=== PATIENT | female | born 1950 | race Caucasian/White ===

== ENCOUNTER 2025-03-07 14:23 | Emergency (ER) | payer MEDICARE, SELFPAY ==
[2025-03-07 14:25] VITALS: BP 143/70; PULSE 88; RESP 18; TEMP 37.8; O2SAT 94
[2025-03-07 14:29] VITALS: BP 143/70; PULSE 88; RESP 18; TEMP 37.8; O2SAT 94
--- NOTE | 2025-03-07 14:45 | DI.CT_ITS ---
Exam(s) CT HEAD WO EXAM: CT HEAD WO CLINICAL HISTORY: Confusion, AMS. TECHNIQUE: Imaging Protocol: Axial computed tomography images with coronal and sagittal reformatted images were created and reviewed COMPARISON: No exams were available for comparison FINDINGS: Ventricles and Extra axial spaces: Normal in size and morphology for the patient's age. Hemorrhage: None. Cerebral parenchyma: No evidence of acute infarct or mass. Mild microvascular changes in the white matter. Midline shift: None. Brainstem/Cerebellum: Normal. Bones: No skull or facial fractures. Visualized Paranasal sinuses:Clear. Mastoids: Clear. Soft Tissues: Unremarkable. ORBITS: Unremarkable. PITUITARY: Not enlarged. IMPRESSION: No acute intracranial process. RADIATION DOSE DELIVERED: Total DLP DATA REPOSITORY: All CT scans at this facility are submitted to the National Radiology Data Registry (NRDR) Dose Index Registry (DIR) with the [employer] (A[employer]). RADIATION OPTIMIZATION: All CT scans at this facility use at least one of these dose optimization techniques: automated exposure control; mA and/or kV adjustment per patient size (includes targeted exams where dose is matched to clinical indication); or iterative reconstruction.
--- NOTE | 2025-03-07 14:49 | W.ED.GENAD ---
Discharge Plan Disposition Patient Disposition: Home Condition: Stable Discharge Details Clinical Impression: Confusion, Thrombocytopenia, Tick bite Primary Care Provider: Davin Johns ED Provider: Ingrid Doran Home Meds and New Rx's Prescriptions: New doxycycline hyclate 100 mg tablet 100 mg PO BID 10 Days Qty: 20 0RF No Action amlodipine 5 mg tablet 5 mg PO DAILY Discharge Instructions Instructions: Lyme Disease Test Additional Instructions: You were seen in the emergency department today for evaluation of some increasing confusion in our department you had a full physical examination performed, had a CT of your brain that was read as normal by our radiology team. You did have some laboratory abnormalities, your white blood cell count and your platelet count are slightly low,. And this can be seen in certain types of viral infections. Your urine studies were negative for infection though you do have a very small amount of blood. You had no evidence of damage to your heart and your thyroid is functioning within normal limits. As we discussed, given your recent tick bite a tickborne illness must be considered as this could cause some of the symptoms that you are experiencing. We have started you on a medication called doxycycline, you will take this twice a day and should take all this medication until it is gone, even if you start to feel better. Please avoid excessive sun exposure as your skin will be very sensitive while taking this medication. You will be contacted if the results of your tickborne panel are positive. Additionally, you need to follow-up with your primary care provider to discuss this visit and any ongoing workup, as we do not have a definitive diagnosis for all of the symptoms that you are experiencing today. You can always return to the emergency department especially if you have a fever that does not respond to medication, have alteration in mental status or change in responsiveness, develop headache, chest pain, or any other symptoms that cause you concern. Thank you for allowing us to be part of your care. Stand Alone Forms: Portal Information HPI General Mode of arrival: ambulatory. Date/Time Provider Initiated Documentation: 03/07/25 14:28. Limitations to Documentation: no limitations. Information obtained by: patient, family and old records reviewed. HPI Narrative: This is a 74-year-old female patient with history of hypertension who is presenting for evaluation of confusion. The patient reports that she woke up in her normal state of health, had breakfast and was going about her day. Around noon she called her daughter, stating that she felt confused and not like herself. She is not sure when this started, states that she does not believe there was a definitive onset time. She reports that she is not experiencing any associated symptoms such as headache, vision changes, numbness, weakness, chest pain, etc. She has noted that she has been excessively sweaty at night for the last several days, and was noted to have a low-grade fever in triage. She denies dysuria but did have an episode of urinary incontinence during this provider's examination which is not typical for her. The family member present at bedside says that the patient appears sleepier than typical, she does not have any new facial droop, but was not acting herself. She does have a history of recent mild memory impairment, but is otherwise fairly healthy. She does not tend to go to the doctors if she can avoid it. Related Data Home Medications ?Medication ?Instructions ?Recorded ?Confirmed amlodipine 5 mg tablet 5 mg PO DAILY 03/07/25 03/07/25 doxycycline hyclate 100 mg tablet 100 mg PO BID 10 days #20 tabs 03/07/25 Previous Rx's ?Medication ?Instructions ?Recorded doxycycline hyclate 100 mg tablet 100 mg PO BID 10 days #20 tabs 03/07/25 Allergies Allergy/AdvReac Type Severity Reaction Status Date / Time No Known Allergies Allergy Unverified 03/07/25 14:29 General Stated Complaint: AMS/LOC MATTHIAS: 3 Exam Narrative Exam Narrative: Gen: awake and alert, in no apparent distress. Appears well nourished. HEENT: PERRL, EOMs full and without nystagmus. External ears and nose normal, mucous membranes moist. Neck: Supple, full range of motion, no observable masses Lungs: No increased work of breathing, lung sounds clear and equal bilaterally without wheezes, rhonchi, or rales. CV: Heart with regular rate and rhythm, no murmurs auscultated. Strong and symmetrical radial pulses. Abdomen: Soft, nondistended, non-tender to palpation. No rigidity, rebound tenderness, or guarding. MSK: No joint swelling, no redness. Full ROM without limitation, no external traumatic findings. Skin: No rashes or lesions to visualized skin. Normal color, warm, and dry. Neuro: Cranial nerves II-XII intact and symmetrical bilaterally. 5/5 strength in all muscle groups x4 extremities. No sensory deficits. Accurate targeting with [id number], ambulates with steady gait. Psych: Appropriate for situation. Course Vital Signs Vital signs: Vital Signs Temperature 37.8 C H 03/07/25 14: Pulse 88 03/07/25 14:25 Respiratory Rate 18 03/07/25 14: Blood Pressure 143/70 H 03/07/25 14:25 Pulse Oximetry 94 03/07/25 14: Temperature 37.8 C H 03/07/25 14: Temperature Source Tympanic 03/07/25 14:29 Pulse 88 03/07/25 14:29 Respiratory Rate 18 03/07/25 14: Blood Pressure 143/70 H 03/07/25 14:29 Pulse Oximetry 94 03/07/25 14: Oxygen Delivery Method Room Air 03/07/25 14: Oxygen Flow Rate 0 03/07/25 14: Pain Level 0 03/07/25 14:29 Medical Decision Making This is a 74-year-old female patient presenting for evaluation of confusion. My differential includes but is not limited to intracranial pathology including stroke, hemorrhage, intracranial mass effect, though the patient is at this time neurologically intact with an NIH score of 0. I certainly considered infectious pathology, most likely UTI given the episode of new incontinence. Considered metabolic and electrolyte derangement, dehydration, kidney injury, hypothyroidism. Unfortunately, there are not many localizing symptoms to help guide further differentials. We will obtain labs to include CBC, CMP, magnesium, troponin, urinalysis, TSH, and will obtain a Noncon CT head. - I reviewed the patient's laboratory studies, and do note a leukopenia and thrombocytopenia without priors available for comparison. No severe anemia, chemistry panel with without significant electrolyte derangement other than a very slightly low sodium to 133 and calcium to 8.1. No evidence of kidney or liver dysfunction, troponin is negative, TSH within normal limits. The urinalysis does show microscopic hematuria without evidence of infection. The CT head was reviewed by myself and shows no evidence of acute intracranial abnormality to explain her symptoms. When I reevaluated the patient, she and her family member report that she is at her neurologic baseline, with some confusion and repetitive questioning which is normal for her. I explained the findings, especially the leukopenia and thrombocytopenia which may be credit resolution representative of viral syndrome. The patient has no respiratory symptoms to suggest viral URI, but on subsequent history taking does endorse an engorged tick bite within the last few weeks on her torso. For this reason, it is reasonable to send off a tick and Lyme panel but I will empirically treat this patient with 10 days of doxycycline twice daily. I also provided her with a dose of Tylenol for her low-grade fever. I instructed the patient to take all the antibiotics unless she was instructed to stop, the results of her lab test will not be available for several days. She will need to follow-up with her primary care provider to ensure normalization of her blood counts. At this time, the patient has had a full medical evaluation and is safe for discharge to home. They are hemodynamically stable, ambulatory, and tolerating PO. They are understanding of the follow-up plan and return precautions. They left our facility without incident. Ingrid Doran MD [facility], [facility] All Active Problems (Updated 03/07/25 @ 17:10 by Ingrid Doran MD) Tick bite (Acute) Confusion (Acute) Thrombocytopenia (Chronic) Social History Smoking/Tobacco Use Status: Never Smoking risk assessment performed?: Yes Alcohol Intake: never Drug use: Never Substance use type: does not use Housing: house Do you feel safe at home: Yes Do you feel safe in your relationship?: Yes
[2025-03-07 15:43] LABS: HCT 35.5 % (36.0-46.0); HGB 12.1 g/dL (11.2-15.7); MCH 29.3 pg (27.0-33.0); MCHC 34.1 % (32.0-36.0); MCV 86 fL (80-95); MPV 10.6 fL (8.0-11.0); RBC 4.13 10^6/uL (3.93-5.22); RDW 13.2 % (11.7-14.6); RDW-SD 41.5 fL; WBC 3.14 10^3/uL (4.4-10.8)
[2025-03-07 15:51] LABS: INR 1.1 (0.9-1.1); Prothrombin Time 11.0 sec (9.1-11.1)
[2025-03-07 16:02] LABS: Magnesium 1.8 mg/dL (1.6-2.6)
[2025-03-07 16:04] LABS: ALT 24 U/L (10-49); AST 28 U/L (<34); Albumin 3.9 g/dL (3.4-5.0); Alkaline Phosphatase 58 U/L (46-116); Anion Gap 7.5 mmol/L (3-11); BUN 14 mg/dL (9-23); Bilirubin, Total 1.10 mg/dL (0.2-1.2); CO2 26.4 mmol/L (20.0-31.0); Calcium 8.1 mg/dL (8.3-10.6); Chloride 99 mmol/L (98-107); Glucose 103 mg/dL (74-106); Potassium 3.9 mmol/L (3.5-5.1); Sodium 133 mmol/L (136-145); Total Protein 6.3 g/dL (5.7-8.2)
[2025-03-07 16:07] LABS: TSH (W/Ref FT4) 2.26 uIU/mL (0.55-4.78)
[2025-03-07 16:11] LABS: Immature Grans % 0.0 %; Platelet Count 74 10^3/uL (130-400)
[2025-03-07 16:12] LABS: Abs Immature Grans 0.00 10^3/uL (0.0-0.06); RBC Morphology Normal
[2025-03-07 16:19] LABS: Troponin I < 3 ng/L (<35)
[2025-03-07 16:28] LABS: Glucose Negative (Negative)
[2025-03-07 16:41] LABS: C & S Indicated? No; WBC 0-2 HPF (0-5)
[2025-03-07 17:30] VITALS: BP 103/64; PULSE 78; RESP 16; O2SAT 97
[2025-03-07] MEDS: Acetaminophen 500 MG TAB 1000 MG PO (17:34)
[2025-03-07] MEDS: Doxycycline Hyclate 100 MG, 2 CAPS/BTL PO (17:34)
[2025-03-07 17:42] VITALS: RESP 16
[2025-03-09 10:01] LABS: Lyme Ab w Rflx to Lyme Confirm Negative (Negative)
[2025-03-11 17:00] LABS: B. miyamotoi PCR Negative (Negative); Babesia divergens/MO-1 Negative (Negative); Ehrlichia muris eauclairensis Negative (Negative)
== END 2025-03-07 17:13 | disposition home or self-care (01) ==
PROVIDERS: Emergency Provider Emergency Medicine; PCP Family Medicine
DX: R41.82 Altered mental status, unspecified (principal); D69.6 Thrombocytopenia, unspecified; W57.XXXA Bitten or stung by nonvenomous insect and other nonvenomous arthropods, initial encounter
CPT/HCPCS: 99284 ×2; 80053; 87798; 70450; 81003; 81015; 83735; 84443; 84484; 85025; 85610; 86618